=== PATIENT | male | born 1940 | race Two or more races ===

== ENCOUNTER 2016-12-25 13:07 | Inpatient (IN) | payer OTHER ==
[~2016-12-25] VITALS: Ht 170.2 cm; Wt 59.0 kg
[2016-12-25 14:30] LABS: PLATELET COUNT 174 x10^3mcL (130-400); RED CELL DISTRIBUTION WIDTH 14.1 % (11.5-14.5)
[2016-12-25 15:02] LABS: ALBUMIN 4.5 g/dL (3.4-5.0); ALKALINE PHOSPHATASE 98 U/L (46-116); ALT/SGPT 25 U/L (16-63); AST/SGOT 20 U/L (15-37); BILIRUBIN TOTAL 0.8 mg/dL (0.20-1.00); CALCIUM 9.7 mg/dL (8.5-10.1); CARBON DIOXIDE 25.7 mmol/L (21-32); CHLORIDE SERUM 102 mmol/L (98-107); GLUCOSE SERUM 135 mg/dL (74-106); MAGNESIUM 1.9 mg/dL (1.8-2.4); SODIUM SERUM 134 mmol/L (136-145)
[2016-12-25 15:03] LABS: POTASSIUM SERUM 6.9 mmol/L (3.5-5.1); TOTAL PROTEIN, SERUM 8.5 g/dL (6.4-8.2)
[2016-12-25 15:42] LABS: BAND NEUTROPHIL 4 % (0-10); BASOPHIL 0 % (0-2); MONOCYTE 7 % (0-7); SEGMENTED NEUTROPHILS 68 % (37-75)
[2016-12-25] MEDS ORDERED: ZESTRIL5 MG (15:55)
[2016-12-25 16:17] LABS: rbc morphology (normal/abnorm) NORMAL (NORMAL)
[2016-12-25 16:21] LABS: CALCIUM 8.5 mg/dL (8.5-10.1); CARBON DIOXIDE 28.5 mmol/L (21-32); CHLORIDE SERUM 105 mmol/L (98-107); CREATININE SERUM 1.8 mg/dL (0.7-1.3); GLUCOSE SERUM 231 mg/dL (74-106); POTASSIUM SERUM 4.6 mmol/L (3.5-5.1); SODIUM SERUM 138 mmol/L (136-145)
[2016-12-25 16:26] LABS: CHOLESTEROL/HDL RATIO 3.2
[2016-12-25 16:29] VITALS: BP 144/86
[2016-12-25 16:34] LABS: FREE T4 1.43 ng/dL (0.76-1.46); FREE THYROXINE INDEX 3.8 ug/dL (1.4-4.5); T4(THYROXINE) 11.2 ug/dL (4.7-13.3)
[2016-12-25 17:02] LABS: T3 TOTAL 1.08 ng/mL
[2016-12-25 20:42] LABS: CALCIUM 8.5 mg/dL (8.5-10.1); CHLORIDE SERUM 106 mmol/L (98-107); CREATININE SERUM 1.8 mg/dL (0.7-1.3); GLUCOSE SERUM 156 mg/dL (74-106); POTASSIUM SERUM 4.4 mmol/L (3.5-5.1); SODIUM SERUM 139 mmol/L (136-145)
[2016-12-25 22:00] VITALS: BP 105/65
[2016-12-26 00:33] LABS: CALCIUM 8.4 mg/dL (8.5-10.1); CARBON DIOXIDE 23.5 mmol/L (21-32); CHLORIDE SERUM 106 mmol/L (98-107); CREATININE SERUM 1.6 mg/dL (0.7-1.3); GLUCOSE SERUM 120 mg/dL (74-106); POTASSIUM SERUM 4.1 mmol/L (3.5-5.1); SODIUM SERUM 138 mmol/L (136-145)
[2016-12-26 07:00] VITALS: BP 119/69
[2016-12-26] MEDS ORDERED: PRINIVIL20 MG PO (09:33)
[2016-12-26] MEDS ORDERED: ALLOPURINOL100 MG PO (09:34)
[2016-12-26] MEDS ORDERED: ASPIRIN FOR CHI81 M1 PO (09:35)
[2016-12-26 09:49] LABS: BASOPHIL % 0.3 % (0-2); PLATELET COUNT 137 x10^3mcL (130-400)
[2016-12-26 09:52] LABS: CALCIUM 8.4 mg/dL (8.5-10.1); CARBON DIOXIDE 22.8 mmol/L (21-32); CHLORIDE SERUM 105 mmol/L (98-107); CREATININE SERUM 1.5 mg/dL (0.7-1.3); GLUCOSE SERUM 99 mg/dL (74-106); POTASSIUM SERUM 3.9 mmol/L (3.5-5.1); SODIUM SERUM 137 mmol/L (136-145)
[2016-12-26 09:57] VITALS: BP 105/61
[2016-12-26 12:36] VITALS: BP 118/65
[2016-12-26 17:47] VITALS: BP 117/66
[2016-12-26 21:18] VITALS: BP 125/64
[2016-12-27 05:08] VITALS: BP 121/74
[2016-12-27 06:42] LABS: BASOPHIL % 0.3 % (0-2); RED CELL DISTRIBUTION WIDTH 13.9 % (11.5-14.5)
[2016-12-27 06:47] LABS: PLATELET COUNT 124 x10^3mcL (130-400)
[2016-12-27 06:54] LABS: CALCIUM 8.2 mg/dL (8.5-10.1); CARBON DIOXIDE 23.7 mmol/L (21-32); CHLORIDE SERUM 108 mmol/L (98-107); CREATININE SERUM 1.1 mg/dL (0.7-1.3); GLUCOSE SERUM 94 mg/dL (74-106); MAGNESIUM 1.6 mg/dL (1.8-2.4); PHOSPHOROUS 2.2 mg/dL (2.5-4.9); POTASSIUM SERUM 3.8 mmol/L (3.5-5.1); SODIUM SERUM 140 mmol/L (136-145)
[2016-12-27 07:55] LABS: microscopic required? NO
[2016-12-27 09:23] LABS: urine erythrocyte NEGATIVE (NEGATIVE)
[2016-12-27] MEDS ORDERED: FLAGYL500 MG PO (09:24)
[2016-12-27] MEDS ORDERED: LAC PO (09:25)
[2016-12-27 09:55] VITALS: BP 123/42
[2016-12-27 11:19] VITALS: BP 123/42
== END 2016-12-27 11:56 | disposition home or self-care (01) | DRG 391 ==
LOC: ED 13:07 → DU 15:12 → MU 12-27 10:29
PROVIDERS: Emergency Medicine; Family Medicine; ADMIT Family Medicine
DX: K52.9 Noninfective gastroenteritis and colitis, unspecified (principal); N17.0 Acute kidney failure with tubular necrosis; E87.6 Hypokalemia; E78.5 Hyperlipidemia, unspecified; I10 Essential (primary) hypertension; Z68.20 Body mass index [BMI] 20.0-20.9, adult; Z79.82 Long term (current) use of aspirin; Z90.79 Acquired absence of other genital organ(s)
CPT/HCPCS: 83880; 84439; J1815; J3490; J7030; Q0092

== ENCOUNTER 2019-10-11 21:13 | Emergency (ER) | payer OTHER ==
[~2019-10-11] VITALS: Ht 172.7 cm; Wt 78.0 kg
[~2019-10-11 21:13] MED LIST: ALLOPURINOL100 MG PO; ASPIRIN FOR CHI81 M1 PO; FLAGYL500 MG PO; LAC PO; PRINIVIL20 MG PO; ZESTRIL5 MG
[2019-10-11 21:19] VITALS: Ht 172.7 cm; Wt 78.0 kg
[2019-10-11 21:55] LABS: BASOPHIL % 0.5 % (0-2); PLATELET COUNT 186 x10^3mcL (130-400); RED CELL DISTRIBUTION WIDTH 13.7 % (11.5-14.5)
[2019-10-11 22:09] LABS: CARBON DIOXIDE 26.1 mmol/L (21-32); CHLORIDE SERUM 106 mmol/L (98-107); CREATININE SERUM 1.3 mg/dL (0.7-1.3); GLUCOSE SERUM 105 mg/dL (74-106); POTASSIUM SERUM 4.3 mmol/L (3.5-5.1); SODIUM SERUM 139 mmol/L (136-145)
[2019-10-11 22:10] LABS: microscopic required? YES; urine erythrocyte 3+ (NEGATIVE)
[2019-10-11 22:14] LABS: ALBUMIN 4.1 g/dL (3.4-5.0); ALKALINE PHOSPHATASE 102 U/L (46-116); ALT/SGPT 25 U/L (16-63); AST/SGOT 18 U/L (15-37); BILIRUBIN TOTAL 0.45 mg/dL (0.20-1.00); TOTAL PROTEIN, SERUM 7.9 g/dL (6.4-8.2)
[2019-10-12 00:05] VITALS: BP 128/68
== END 2019-10-11 23:55 | disposition home or self-care (01) ==
LOC: ED 21:13
PROVIDERS: Emergency Medicine
DX: N28.1 Cyst of kidney, acquired (principal); I10 Essential (primary) hypertension
CPT/HCPCS: J7030; Q9967